=== PATIENT | female | born 1955 | race Caucasian/White ===

== ENCOUNTER → 2016-08-15 | Outpatient (CLI) | payer BC ==
[~2016-08-15] MED LIST: AUGMENTIN875 MG PO; LIPITOR40 MG PO; MAG119MX PO; NORCO 5-325 MG1 TAB PO; PLEXUS PO; TYLENOL325 MG PO
== END | disposition disaster alternative care site (69) ==
LOC: GRAD 12:42
DX: J84.89 Other specified interstitial pulmonary diseases (principal)